=== PATIENT | female | born 1965 | race Hispanic/Latino ===

== ENCOUNTER 2022-02-24 08:42 | Emergency (ER) | payer OTHER ==
[~2022-02-24] VITALS: Ht 162.6 cm; Wt 60.3 kg
[2022-02-24] MEDS ORDERED: PREDNISONE 20 MG TAB PO ONE (09:00)
[2022-02-24] MEDS ORDERED: ALBUTEROL/IPRATROPIUM 3 ML NEB NEB ONE (09:00)
[2022-02-24] MEDS ORDERED: AMOX TR-K CLV1 EAC2 PO (09:12)
[2022-02-24] MEDS ORDERED: PROVENTIL HFA6.7 GM INH (09:15)
[2022-02-24] MEDS ORDERED: PREDNISONE20 MG PO (09:17)
[2022-02-24] MEDS ORDERED: PROMETHAZINE-C473 ML PO (09:19)
[2022-02-24] MEDS ORDERED: ALBUTEROL/IPRATROPIUM 3 ML NEB ONE (09:20)
[2022-02-24] MEDS ORDERED: IBUPROFEN 600 MG TAB PO STA (09:23)
[2022-02-24] MEDS ORDERED: IBUPROFEN 600 MG TAB ONE (09:28)
[2022-02-24 09:40] VITALS: BP 133/74
== END 2022-02-24 09:42 | disposition home or self-care (01) ==
LOC: FSED 09:03
DX: R50.9 Fever, unspecified (principal); J10.1 Influenza due to other identified influenza virus with other respiratory manifestations; J20.9 Acute bronchitis, unspecified; R05.9 Cough, unspecified
CPT/HCPCS: 83518; 87400; 99283; J7512